=== PATIENT | male | born 1940 | race Caucasian/White ===

== ENCOUNTER 2021-04-12 13:44 | Emergency (ER) | payer OTHER ==
[~2021-04-12] VITALS: Ht 167.6 cm; Wt 70.8 kg
[2021-04-12 15:11] VITALS: BP 175/81
--- NOTE | 2021-04-12 15:55 | NUR ---
CAROL KUMARI AT BEDSIDE.
[2021-04-12] MEDS: KETOROLAC 30 MG/ML VIAL IM ONE (16:07)
--- NOTE | 2021-04-12 16:37 | NUR ---
Patient discharged with v/s stable. Written and verbal after care instructions given and explained. Patient verbalized understanding. Ambulatory with steady gait. All questions addressed prior to discharge. Advised to follow up with PMD.
--- NOTE | 2021-04-12 16:47 | NUR ---
Chart checked and completed. The patient's care was reviewed and supervised by Jeimy Brasher RN.
== END 2021-04-12 16:36 | disposition home or self-care (01) ==
LOC: MED 13:44
DX: M54.31 Sciatica, right side (principal); E11.9 Type 2 diabetes mellitus without complications
CPT/HCPCS: 96372; 99283; J1885